=== PATIENT | female | born 1965 | race Caucasian/White ===

== ENCOUNTER 2017-01-17 06:46 | Emergency (ER) | payer OTHER ==
[2017-01-17 06:53] VITALS: BP 143/72; PULSE 84; RESP 18; TEMP 97.6
--- NOTE | 2017-01-17 07:46 | ED ---
General Adult HPI - General Chief complaint: Extremity Injury, Upper Stated complaint: finger pain, [facility] Time Seen by Provider: 01/17/17 07:14 Source: patient, RN notes reviewed, old records reviewed Mode of arrival: ambulatory Limitations: no limitations - History of Present Illness Initial comments: This is a 31-year-old female here for evaluation of thumb injury. Bilateral thumb injury which happened at work. This was a work accident. Patient has no specific medical history regulating the accident. Denies drugs or alcohol. Patient states that she was using work breast and he came down on her thumbs, both thumbs, no laceration, mild abrasion with mild bleeding, able to move left thumb decreased range of motion right thumb. No other injury - Related Data Allergies Allergy/AdvReac Type Severity Reaction Status Date / Time codeine Allergy Mild Nausea & Verified 01/17/17 06:54 Vomiting Review of Systems ROS Statement: Those systems with pertinent positive or pertinent negative responses have been documented in the HPI. ROS Other: All systems not noted in ROS Statement are negative. Past Medical History Past Medical History: No Reported History History of Any Multi-Drug Resistant Organisms: None Reported Past Surgical History: Cholecystectomy, Hysterectomy Past Psychological History: No Psychological Hx Reported Smoking Status: Never smoker Past Alcohol Use History: None Reported Past Drug Use History: None Reported General Exam Limitations: no limitations General appearance: alert, in no apparent distress Head exam: Present: atraumatic, normocephalic, normal inspection Eye exam: Present: normal appearance, PERRL, EOMI. Absent: scleral icterus, conjunctival injection, periorbital swelling ENT exam: Present: normal exam, mucous membranes moist Neck exam: Present: normal inspection. Absent: tenderness, meningismus, lymphadenopathy Respiratory exam: Present: normal lung sounds bilaterally. Absent: respiratory distress, wheezes, rales, rhonchi, stridor Cardiovascular Exam: Present: regular rate, normal rhythm, normal heart sounds. Absent: systolic murmur, diastolic murmur, rubs, gallop, clicks GI/Abdominal exam: Present: soft, normal bowel sounds. Absent: distended, tenderness, guarding, rebound, rigid Extremities exam: Present: normal inspection, full ROM, normal capillary refill , other (Bilateral thumb ecchymosis minor abrasion right thumb, bleeding stopped ). Absent: tenderness, pedal edema, joint swelling, calf tenderness Back exam: Present: normal inspection Neurological exam: Present: alert, oriented X3, CN II-XII intact Psychiatric exam: Present: normal affect, normal mood Skin exam: Present: warm, dry, intact, normal color. Absent: rash Course Vital Signs 01/17/17 06:51 Temperature 97.6 F Pulse Rate 84 Respiratory 18 Rate Blood Pressure 143/72 O2 Sat by Pulse 98 Oximetry - Reevaluation(s) Reevaluation #1: 01/17/17 07:45 Patient is not requiring anything for pain management Medical Decision Making - Medical Decision Making 51 female ER with bilateral thumb contusion, work injury, patient will be discharged on Motrin Tylenol for pain - Radiology Data Radiology results: report reviewed (X-ray bilateral thumb shows no fracture), image reviewed Disposition Clinical Impression: Thumb contusion Narrative: bilateral Disposition: HOME SELF-CARE Condition: Good Instructions: Contusion in Adults (ED) Referrals: Mayte Hoang MD [Primary Care Provider] - 1-2 days
--- NOTE | 2017-01-17 08:21 | XR ---
EXAMINATION TYPE: XR hand limited bilateral DATE OF EXAM: 01/17/2017 7:35 AM COMPARISON: NONE HISTORY: Injury to bilateral thumbs, crush injury TECHNIQUE: 3 views bilateral hands FINDINGS: No acute fractures are evident. Joint spaces are preserved. Soft tissues appear normal. No radiopaque foreign bodies are evident. Follow-up study can be performed 7-10 days from acute trauma for continued pain. IMPRESSION: 1. Normal bilateral hands
[2017-01-17] MEDS ORDERED: DIPH,PERTUS(ACELL)TETVAC-LF 0.5 ML VIAL IM ONE (08:52)
== END 2017-01-17 09:06 | disposition home or self-care (01) ==
LOC: EC 06:46
DX: S60.011A Contusion of right thumb without damage to nail, initial encounter (principal); S60.012A Contusion of left thumb without damage to nail, initial encounter; Z88.5 Allergy status to narcotic agent; Z23 Encounter for immunization; X58.XXXA Exposure to other specified factors, initial encounter; Y92.69 Other specified industrial and construction area as the place of occurrence of the external cause; Y99.0 Civilian activity done for income or pay
CPT/HCPCS: 90471; 90715; 99284

== ENCOUNTER → 2018-05-16 | Outpatient (CLI) | payer OTHER ==
--- NOTE | 2018-05-17 11:30 | BD ---
EXAMINATION TYPE: Axial Bone Density DATE OF EXAM: 05/16/2018 COMPARISON: NONE CLINICAL HISTORY: Height: 5 FT 4 IN Weight: 178 FRAX RISK QUESTIONS: Secondary Osteoporosis: 3. Menopause before 45: YES RISK FACTORS HISTORY OF: Active: YES Postmenopausal woman: PART HYST AGE 38 MEDICATIONS: Additional Medications: BABY ASPIRIN Additional History: EXAM MEASUREMENTS: Bone mineral densitometry was performed using the Shoefitr System. Bone mineral density as measured about the Lumbar spine is: ----- L1-L4(G/cm2): 1.077 T Score Values are as follows: ----- L2: -0.4 ----- L3: -0.5 ----- L4: -1.4 ----- L1-L4: -0.9 BASELINE Bone mineral density about the R hip (g/cm2): 0.910 Bone mineral density about the L hip (g/cm2): 0.844 T Score values are as follows: -----R Neck: -0.9 -----L Neck: -1.4 -----R Total: -0.6 -----L Total: -0.8 BASELINE IMPRESSION: No evidence for osteoporosis or osteopenia. NOTE: T-SCORE=SD OF THE YOUNG ADULT MEAN.
--- NOTE | 2018-05-20 09:51 | MM ---
Reason for exam: screening (asymptomatic). Last mammogram was performed 2 years and 3 months ago. History: Benign right mammotome panel of the right breast, April 03, 2007. Took hormonal contraceptives for 1 year beginning at age 18. Physical Findings: A clinical breast exam by your physician is recommended on an annual basis and results should be correlated with mammographic findings. MG Screening Mammo w CAD Bilateral CC and MLO view(s) were taken. Prior study comparison: February 15, 2016, bilateral MG screening mammo w CAD. October 01, 2014, bilateral MG screening mammo w CAD. There are scattered fibroglandular densities. There is no discrete abnormality. No significant changes when compared with prior studies. ASSESSMENT: Negative, BI-RAD 1 RECOMMENDATION: Routine screening mammogram of both breasts in 1 year.
== END | disposition home or self-care (01) ==
LOC: RADMAMWWP 15:42
PROVIDERS: ATTEND Family Medicine
DX: Z12.31 Encounter for screening mammogram for malignant neoplasm of breast (principal); Z13.820 Encounter for screening for osteoporosis
CPT/HCPCS: 77067; 77080

== ENCOUNTER → 2019-08-08 | Outpatient (CLI) | payer BC ==
--- NOTE | 2019-08-12 10:19 | MM ---
Reason for exam: screening (asymptomatic). Last mammogram was performed 1 year and 3 months ago. History: Benign right mammotome panel of the right breast, April 03, 2007. Took hormonal contraceptives for 1 year beginning at age 18. Physical Findings: A clinical breast exam by your physician is recommended on an annual basis and results should be correlated with mammographic findings. MG Screening Mammo w CAD Bilateral CC and MLO view(s) were taken. Prior study comparison: May 16, 2018, bilateral MG screening mammo w CAD. February 15, 2016, bilateral MG screening mammo w CAD. There are scattered fibroglandular densities. Previous mammotome biopsy in the right breast. There is chronic nodularity in the right breast. No significant changes when compared with prior studies. ASSESSMENT: Negative, BI-RAD 1 RECOMMENDATION: Routine screening mammogram of both breasts in 1 year.
== END | disposition home or self-care (01) ==
LOC: RADMAMWWP 16:39
PROVIDERS: ATTEND Family Medicine
DX: Z12.31 Encounter for screening mammogram for malignant neoplasm of breast (principal)
CPT/HCPCS: 77067

== ENCOUNTER → 2021-07-23 | Outpatient (CLI) | payer BC ==
[2021-07-23 18:52] LABS: Basophils # (A) 0.06 X 10*3/uL (0.00-0.10); Basophils % (A) 0.6 %; Eosinophils # (A) 0.23 X 10*3/uL (0.04-0.35); Eosinophils % (A) 2.2 %; HCT 45.2 % (37.2-46.3); HGB 14.9 g/dL (12.0-15.0); Lymphocytes # (A) 2.79 X 10*3/uL (0.90-5.00); Lymphocytes % (A) 26.8 %; MCH 32.3 pg (27.0-32.0); Mean Platelet Volume 12.8 fL (9.5-12.2); Monocytes # (A) 0.41 X 10*3/uL (0.20-1.00); Monocytes % (A) 3.9 %; Neutrophils % (A) 66.2 %; Platelet Count 183 X 10*3/uL (140-440); RBC 4.61 X 10*6/uL (4.10-5.20); RDW 13.1 % (11.5-14.5); WBC 10.42 X 10*3/uL (4.50-10.00)
[2021-07-23 20:12] LABS: Albumin 4.4 g/dL (3.8-4.9); Albumin/Globulin Ratio 1.88 (1.60-3.17); BUN/Creat Ratio 18.2 Ratio (12.00-20.00); Blood Urea Nitrogen 11.3 mg/dL (9.0-27.0); Calcium 9.4 mg/dL (8.7-10.3); Carbon Dioxide 20.1 mmol/L (21.6-31.8); Chol/HDL Ratio 3.66 Ratio; Globulin 2.3 g/dL (1.6-3.3); HDL Cholesterol 33.6 mg/dL (40.00-60.00); LDL Cholesterol,Calculated 66.8 mg/dL (0.0-131.0); Potassium 4.3 mmol/L (3.5-5.5); Total Bilirubin 0.9 mg/dL (0.30-1.20); Total Protein 6.7 g/dL (6.2-8.2); VLDL Calculation 22.6 mg/dL (5.00-40.00)
== END | disposition home or self-care (01) ==
LOC: LABWHC1 09:03
PROVIDERS: ATTEND Family Medicine
DX: Z00.00 Encounter for general adult medical examination without abnormal findings (principal)
CPT/HCPCS: 36415; 80053; 80061; 84443; 85025

== ENCOUNTER → 2022-08-02 | Outpatient (CLI) | payer BC ==
[2022-08-02 11:32] LABS: ALT 118 U/L (8-44); AST 98 U/L (13-35); African American GFR (CKD) 110.7 (60.0-200.0); Albumin 4.5 g/dL (3.8-4.9); Albumin/Globulin Ratio 1.73 (1.60-3.17); Alkaline Phosphatase 79 U/L (41-126); BUN/Creat Ratio 19.71 Ratio (12.00-20.00); Basophils # (A) 0.05 X 10*3/uL (0.00-0.10); Basophils % (A) 0.5 %; Blood Urea Nitrogen 13.8 mg/dL (9.0-27.0); Calcium 9.3 mg/dL (8.7-10.3); Carbon Dioxide 22.7 mmol/L (20.0-27.5); Chloride 106 mmol/L (96-109); Chol/HDL Ratio 3.58 Ratio; Eosinophils # (A) 0.16 X 10*3/uL (0.04-0.35); Eosinophils % (A) 1.6 %; Globulin 2.6 g/dL (1.6-3.3); Glucose 115 mg/dL (70-110); HCT 43.9 % (37.2-46.3); HGB 15.3 g/dL (12.0-15.0); Immature Grans, Automated 0.4 %; LDL Cholesterol,Calculated 58.9 mg/dL (0.0-131.0); Lymphocytes % (A) 28.3 %; MCH 33.3 pg (27.0-32.0); MCHC 34.9 g/dL (32.0-37.0); MCV 95.4 fL (80.0-97.0); Mean Platelet Volume 13.1 fL (9.5-12.2); Monocytes # (A) 0.45 X 10*3/uL (0.20-1.00); Monocytes % (A) 4.5 %; NRBC Per 100 WBC 0 /100 WBCS (0.0-0.0); Neutrophils # (A) 6.41 X 10*3/uL (1.80-7.70); Neutrophils % (A) 64.7 %; Non-African American GFR(CKD) 95.5 (60.0-200.0); Platelet Count 214 X 10*3/uL (140-440); Potassium 4.1 mmol/L (3.5-5.5); RDW 12.7 % (11.5-14.5); Sodium 140 mmol/L (135-145); Total Protein 7.1 g/dL (6.2-8.2); WBC 9.91 X 10*3/uL (4.50-10.00)
== END | disposition home or self-care (01) ==
LOC: LABWHC1 07:29
PROVIDERS: ATTEND Family Medicine
DX: Z00.00 Encounter for general adult medical examination without abnormal findings (principal)
CPT/HCPCS: 36415; 80053; 80061; 84439; 84443; 85025

== ENCOUNTER → 2022-08-23 | Outpatient (CLI) | payer BC ==
--- NOTE | 2022-08-23 12:29 | MM ---
Reason for Exam: Screening (asymptomatic). Last mammogram was performed 3 year(s) and 0 month(s) ago. Patient History: Menarche at age 13. First Full-Term at age 17. Hysterectomy at age 38. Hormonal Contraceptives, starting at age 18 for 1 year. 04/03/2007, Benign Core Biopsy on the right side. Risk Values: Cassie 5 year model risk: 1.0%. NCI Lifetime model risk: 6.0%. Prior Study Comparison: 02/15/2016 Bilateral Screening Mammogram, [facility]. 05/16/2018 Bilateral Screening Mammogram, [facility]. 08/08/2019 Bilateral Screening Mammogram, [facility]. Tissue Density: There are scattered fibroglandular densities. Findings: Analyzed By CAD. There is no suspicious group of microcalcifications or new suspicious mass in either breast. Overall Assessment: Negative, BI-RAD 1 Management: Screening Mammogram of both breasts in 1 year. A clinical breast exam by your physician is recommended on an annual basis and results should be correlated with mammographic findings. Electronically signed and approved by: Zuhair Baer M.D. Radiologis
== END | disposition home or self-care (01) ==
LOC: RADMAMWWP 07:04
PROVIDERS: ATTEND Family Medicine
DX: Z12.31 Encounter for screening mammogram for malignant neoplasm of breast (principal); Z98.890 Other specified postprocedural states
CPT/HCPCS: 77063; 77067

== ENCOUNTER → 2023-10-29 | Outpatient (CLI) | payer BC ==
--- NOTE | 2023-10-31 08:27 | MM ---
Reason for Exam: Screening (asymptomatic). Last mammogram was performed 1 year(s) and 3 month(s) ago. Patient History: Menarche at age 13. First Full-Term at age 17. Hysterectomy at age 38. Postmenopausal. Hormonal Contraceptives, starting at age 18 for 1 year. 04/03/2007, Benign Core Biopsy on the right side. Risk Values: Cassie 5 year model risk: 1.1%. NCI Lifetime model risk: 5.9%. Prior Study Comparison: 05/16/2018 Bilateral Screening Mammogram, [facility]. 08/08/2019 Bilateral Screening Mammogram, [facility]. 08/23/2022 Bilateral MG 3D screening mammo w/cad, [facility]. Tissue Density: The breast tissue is almost entirely fat. Findings: Analyzed By CAD. There is no suspicious group of microcalcifications or new suspicious mass. Overall Assessment: Negative, BI-RAD 1 Management: Screening Mammogram of both breasts in [address] [facility] will attempt to contact patient to return for supplemental views and ultrasound if indicated. Patient should continue monthly self-breast exams. A clinical breast exam by your physician is recommended on an annual basis. This exam should not preclude additional follow-up of suspicious palpable abnormalities. Note on Cassie scores and lifetime risk: 1. A Cassie score greater than 3% is considered moderate risk. If this is the case, consider specialist referral to assess eligibility for a risk reducing agent. 2. If overall lifetime risk for the development of breast cancer is 20% or higher, the patient may qualify for future screening with alternating mammogram and breast MRI. Electronically signed and approved by: Chris Sullivan DO
== END | disposition home or self-care (01) ==
LOC: RADMAMWWP 16:17
PROVIDERS: ATTEND Family Medicine
DX: Z12.31 Encounter for screening mammogram for malignant neoplasm of breast (principal); Z78.0 Asymptomatic menopausal state
CPT/HCPCS: 77067

== ENCOUNTER → 2024-10-28 | Outpatient (CLI) | payer BC ==
--- NOTE | 2024-10-29 02:08 | CT ---
EXAMINATION TYPE: CT abdomen pelvis w con DATE OF EXAM: 10/28/2024 6:09 PM COMPARISON: None. CLINICAL INDICATION: Female, 58 years old with history of R10.12 LEFT UPPER QUADRANT PAIN, Pain on le ft side of abdomen since July TECHNIQUE: Axial images were obtained from above the diaphragm to the pubic rami in the axial plane a t 5 mm thick sections. Reconstructed images are reviewed on the computer in the coronal plane. CONTRAST: 100 ml mL of Isovue 300. Study performed with Oral Contrast DLP: 1461 mGycm, Automated exposure control for dose reduction was used. FINDINGS: Limited CT sections are obtained the lung bases. The lung bases are clear. CT ABDOMEN: There is intraperitoneal anterior abdominal wall density measuring 2.9 x 1.8 cm. Series 3 image 44. Consider additional workup for neoplasm. Liver: Normal Spleen: Normal Pancreas: Normal Adrenal glands: The adrenal glands are normal. Gallbladder: Surgically absent Kidneys: No masses are evident. No hydronephrosis is present. There is a 3.6 cm cyst on the posteri or medial upper pole left kidney. A nonobstructing 0.8 cm mid left renal stone is present. Aorta: Vascular calcification is within the aorta. Inferior vena cava: Normal. CT PELVIS: Loops of bowel within the abdomen and pelvis as visualized appear normal. There are loops of bowel wh ich are incompletely distended or lack oral contrast limiting their evaluation. Appendix: Normal as visualized. Urinary bladder: Normal. Genitourinary structures: Uterus and ovaries are not identified. Osseous structures: No suspicious lytic or sclerotic lesions. Small bone island may be within the lef t femoral head. Some facet hypertrophy is in the lower lumbar spine. Lymphadenopathy: No suspicious lymphadenopathy is identified. IMPRESSION: 1. Soft tissue mass intraperitoneal anterior abdominal wall. Consider PET CT for additional evaluati on. [facility], Workstation: [facility], 10/29/2024 2:06 AM
== END | disposition home or self-care (01) ==
LOC: RADCTMAIN 15:19
PROVIDERS: ATTEND Family Medicine
DX: R10.12 Left upper quadrant pain (principal); R19.09 Other intra-abdominal and pelvic swelling, mass and lump
CPT/HCPCS: 74177; Q9967

== ENCOUNTER 2024-11-26 08:13 | Day surgery (SDC) | payer BC ==
[2024-11-26 08:41] VITALS: RESP 16; TEMP 97.6
[2024-11-26] MEDS: ALPRAZolam 0.5 MG TAB PO STA (08:45)
[2024-11-26] MEDS: LIDOCAINE 1%-EPI 1:100,000 20 ML VIAL SQ ONE (09:48)
[2024-11-26 10:47] VITALS: BP 113/76; PULSE 80
--- NOTE | 2024-11-26 13:05 | US ---
EXAMINATION TYPE: US biopsy soft tissue/muscle DATE OF EXAM: 11/26/2024 10:30 AM CLINICAL INDICATION:Female, 59 years old with history of R19.02 LEFT UPPER QUADRANT ABDOMINAL SWELLIN G, MAS; COMPARISON: Correlation CT 10/28/2024 ATTENDING: Dr. Kiran TECHNIQUE: Ultrasound guided percutaneous biopsy and aspiration of mass using coaxial method. The patient was m onitored by a qualified trained nurse. FINDINGS: Initial scanning to attempt localization of the 2.6 cm left mid abdominal mass seen on CT located jus t behind the abdominal wall musculature. Scanning in this region shows a irregular heterogeneous hypoechoic area measuring 5.0 cm along the le ft mid abdominal wall muscle layer. This is targeted for biopsy. The procedure was explained to the patient. All questions were answered and informed consent was obta ined. The patient was placed supine and transverse ultrasound images of the area in question were obtained. The overlying skin was marked and prepped using sterile method. Timeout was taken per protocol. Follo wing administration 1% local lidocaine anesthesia into the skin, deeper numbing was performed with li docaine/epinephrine. Subsequently, a 10 cm 18-gauge Bard biopsy system was advanced and with needle t ip visualized within the lesion. After the initial 18-gauge core which was placed on a Telfa pad, we noted that white/yellowish fluid beginning to extrude from the introducer hub. Aspiration attempt at this point yielded 16 mL of purul ent-appearing fluid. The area decompressed considerably with the aspiration. The needle was withdrawn, hemostasis obtained, and a dressing placed. Post procedure ultrasound scanning shows no abnormal fluid collection or evident complication. Patient was taken for postprocedure observation in stable condition. Interestingly, the patient repor ts feeling better after the procedure. IMPRESSIONS: A 5 cm irregular hypoechoic lesion along the left mid abdominal muscle layer identified by ultrasound to correspond to the 2.[address] finding from 10/28/2024. After obtaining one 18-gauge core (placed on a Telfa pad), we noted possible purulent fluid about to extrude from the introducer hub. Subsequent as piration yielded 16 mL of purulent appearing fluid which is sent for cytology and microbiology. Clini bryant correlate as to the need for antibiotic treatment. Follow-up CT in one to 2 weeks to reassess. Pathology results pending. [facility], , 11/26/2024 1:03 PM
== END 2024-11-26 10:35 | disposition home or self-care (01) ==
LOC: RADPROMAIN 08:13
PROVIDERS: ATTEND Surgery
DX: R19.02 Left upper quadrant abdominal swelling, mass and lump (principal)
CPT/HCPCS: 20206; 76942; 87070; 87075; 87077; 87186; 87205; 88305; 88341; 88342

== ENCOUNTER → 2024-11-27 | Outpatient (CLI) | payer BC ==
[2024-11-27 14:28] VITALS: BP 138/81; PULSE 86; RESP 17; TEMP 97.9
--- NOTE | 2024-11-27 15:08 | P.GSCN ---
History of Present Illness Consult date: 11/27/24 Reason for Consult: dry skin right breast Requesting physician: Mayte Hoang History of present illness: Mayte is a 59 year old female seen in consultation for Dr. Hoang regarding a dry skin patch on her right bresat 9-11 oclock area. She had a bilateral mammogram on 11-13-24 which was BIRAD 2. This was personally reviewed. The dry patches of skin have been there for 6 months and are circular in nature and have gotten bigger. She tried cortisone-10 but it didn't hlep. She is not complaining of any lesions in her breast. She is not complaining of any nipple discharge or skin changes. She had a needle biopsy in the past no cancer. She is not complaining of any recent trauma or infection in her breast. Had a biopsy of her stomach done on 11-26-24 results pending. caffiene: 1 cup/day nicotine: none chocolate: occasioinal BCP: 2 years hormones: none Note 10-15-[address] Hoang reviewed Family History: none Hormonal History: menarche: 13 , breast fed: no, age at first : 17 menopause: 38 hysterectomy, left 1 ovary, not cancer Surgical History: gallbaldder hysterectomy oophrectomy tuvaligation mesh for vaginal prolapse Medical History: mass in stomach lining biopsy 11-26-34, awaiting results Social History: nicotine: none slcohol: none drugs: none Review of Systems - Constitutional Denies fever, Denies weight loss - EENT Eyes: denies blurred vision Ears: deny: decreased hearing, tinnitus Ears, nose, mouth and throat: Denies dysphagia - Breasts bilateral: as per HPI - Cardiovascular Denies chest pain, Denies shortness of breath - Respiratory Denies cough, Denies 7 - Gastrointestinal Reports as per HPI - Genitourinary Genitourinary Comment(s): constipation Genitourinary: Reports as per HPI, Denies dysuria, Denies hematuria Menstruation: Reports post hysterectomy - Musculoskeletal Reports as per HPI - Integumentary Reports as per HPI, Reports rash, Denies unusual bruising - Neurological Denies headaches, Denies syncope - Psychiatric Reports as per HPI - Endocrine Reports as per HPI - Hematologic/Lymphatic Denies easy bleeding, Denies easy bruising - Allergic/Immunologic Reports as per HPI Past Medical History Past Medical History: GERD/Reflux History of Any Multi-Drug Resistant Organisms: None Reported Past Surgical History: Cholecystectomy, Hysterectomy Additional Past Surgical History / Comment(s): vaginal mess for prolap, 2018, fibroid on ovary age 2005 Past Psychological History: No Psychological Hx Reported Smoking Status: Former smoker Past Alcohol Use History: None Reported Past Drug Use History: None Reported Medications and Allergies Home Medications Medication Instructions Recorded Confirmed Type Multivit with Calcium,Iron,Min 1 each PO DAILY 11/25/24 11/27/24 History [Women's Multivitamin] Omeprazole [PriLOSEC] 10 mg PO DAILY 11/25/24 11/27/24 History Allergies Allergy/AdvReac Type Severity Reaction Status Date / Time codeine Allergy Mild Nausea & Verified 11/27/24 14:24 Vomiting Surgical - Exam Vital Signs Temp Pulse Resp BP Pulse Ox 97.9 F 86 17 138/81 96 11/27/24 14:24 11/27/24 14:24 11/27/24 14:24 11/27/24 14:24 11/27/24 14:24 - General no distress - Eyes normal ocular movement - ENT no hearing loss - Neck trachea midline - Respiratory normal respiratory effort - Cardiovascular Rhythm: regular Heart Sounds: normal: S1, S2 - Abdomen Abdomen: soft, non tender, no guarding, no rigid, no rebound - Integumentary normal turgor rash right breast - Neurologic no disoriented, no combative - Musculoskeletal normal gait - Psychiatric oriented to time, oriented to person, oriented to place, speech is normal, memory intact Breast Exam: BRA: 38D Inspection: Bilateral grade 3 ptosis, 2 circular rashes noted in the right periareolar area, 1 is 1 cm x 1.5 cm and the other is 8 mm x 1 cm they are scaly erythematous skin patches which do not appear to extend into the breast parenchyma Palpation: Right breast: Multi positional exam fibrocystic changes skin rashes as noted, no dominant masses or nodules of concern Right axilla: No adenopathy of concern Left breast: Multi positional exam no dominant masses or nodules of concern Left axilla: No adenopathy of concern Results Bilateral mammogram from 11 13 24 personally reviewed BI-RADS 2 no lesions of concern noted on this mammogram Assessment and Plan Assessment: Impression: Bilateral mammogram from 11 13 24 personally reviewed BI-RADS 2 no lesions of concern noted on this mammogram Skin lesions as noted Gastric lesion recently biopsied results pending Plan: There is nothing warranting an interventional biopsy of the breast based on radiographs or physical examination The skin lesions appear to be superficial in the skin and not involving the laurence ast parenchyma/I would recommend appointment with dermatology Patient will follow-up here as needed CC: Dr. Haong
== END ==
LOC: WWCWWP 14:06
PROVIDERS: ATTEND Surgery
DX: Z12.31 Encounter for screening mammogram for malignant neoplasm of breast (principal); L98.9 Disorder of the skin and subcutaneous tissue, unspecified; Z88.5 Allergy status to narcotic agent